=== PATIENT | female | born 1965 | race African-American/Black ===

== ENCOUNTER 2019-05-22 15:42 | Emergency (ER) | payer OTHER ==
[2019-05-22] MEDS ORDERED: DIPHTH,PERTUSS(ACELL),TET 0.5 ML DISP.SYRIN IM ONE (15:45)
--- NOTE | 2019-05-22 15:45 | PDOC ---
Rapid Medical Evaluation Time Seen by Provider: 05/22/19 15:43 Medical Evaluation: 05/22/19 15:43 Pt presents for evaluation of R ear pain. Pt states she used a paperclip to clean her ear one week ago. Exam: deferred to provider Orders: David Pt to proceed to the ER for further evaluation. Discharge Disposition - Diagnosis Ear pain, right - Referrals - Patient Instructions - Post Discharge Activity
[2019-05-22 15:48] VITALS: BP 139/86; PULSE 85; TEMP 98.1; BMI 31.7
--- NOTE | 2019-05-22 16:22 | PDOC ---
History of Present Illness - General Chief Complaint: Ear Problem Stated Complaint: RT EAR PAIN Time Seen by Provider: 05/22/19 15:43 - History of Present Illness Initial Comments: 05/22/19 16:20 53-year-old female without comorbidities presents for evaluation of right ear pain. First noticed this morning. She states yesterday she used a paperclip to clean out her ear. She never opened up the paperclip so she does not think she scratched herself. Past History - Past Medical History Allergies/Adverse Reactions: Allergies Allergy/AdvReac Type Severity Reaction Status Date / Time No Known Allergies Allergy Verified 05/22/19 15:47 Home Medications: Ambulatory Orders Ciprofloxacin HCl/Dexameth [Ciprodex Otic Suspension] 4 drop AD BID #1 bottle Asthma: Yes COPD: No - Psycho Social/Smoking Cessation Hx Smoking History: Never smoked Information on smoking cessation initiated: No Hx Alcohol Use: Yes (a few times a week) Drug/Substance Use Hx: No Review of Systems - Review of Systems HEENTM: Yes: Ear Pain *Physical Exam - Vital Signs Last Vital Signs Temp Pulse Resp BP Pulse Ox 98.1 F 85 19 139/86 100 05/22/19 15:44 05/22/19 15:44 05/22/19 15:44 05/22/19 15:44 05/22/19 15:44 - Physical Exam Comments: 05/22/19 16:20 GENERAL: The patient is awake, alert, and fully oriented, in no acute distress. HEAD: Normal with no signs of trauma. EYES: sclera anicteric, conjunctiva clear. ENT: Right tympanic membrane is normal ear canal is erythemic with what appears to be exudative material in the canal NECK: Normal range of motion EXTREMITIES: Normal range of motion, no edema. No clubbing or cyanosis. No cords, erythema, or tenderness. NEUROLOGICAL: Cranial nerves II through XII grossly intact. Normal speech, normal gait. PSYCH: Normal mood, normal affect. SKIN: Warm, Dry, normal turgor, no rashes or lesions noted. Medical Decision Making - Medical Decision Making 05/22/19 16:20 Cipro for otitis externa follow-up with ENT Discharge - Discharge Information Problems reviewed: Yes Clinical Impression/Diagnosis: Ear pain, right, Otitis externa Condition: Stable Disposition: HOME - Admission No - Additional Discharge Information Prescriptions: Ciprofloxacin HCl/Dexameth [Ciprodex Otic Suspension] 4 drop AD BID #1 bottle - Follow up/Referral - Patient Discharge Instructions Patient Printed Discharge Instructions: Otitis Externa, DI for Otitis Externa Additional Instructions: Please use the antibiotic drops as directed. Return to the emergency room for worsening symptoms. Without fail please follow-up with ear nose and throat doctor in 1 to 2 days for further evaluation and treatment options and return to the emergency room should symptoms worsen. Tylenol Motrin as directed for pain. - Post Discharge Activity
== END 2019-05-22 16:24 | disposition home or self-care (01) ==
LOC: JERFT 15:42
PROC: 3E0234Z Introduction of Serum, Toxoid and Vaccine into Muscle, Percutaneous Approach (ICD-10-PCS; principal; 2019-05-22)
DX: H92.01 Otalgia, right ear (principal); H60.91 Unspecified otitis externa, right ear; J45.909 Unspecified asthma, uncomplicated
CPT/HCPCS: 90715; 99281-25